=== PATIENT | male | born 1995 | race Caucasian/White ===

== ENCOUNTER 2020-11-24 16:48 | Emergency (ER) | payer OTHER, MEDICAID ==
[~2020-11-24] VITALS: Ht 172.7 cm; Wt 63.5 kg
[2020-11-24] MEDS ORDERED: ACETAMINOPHEN 500 MG TAB PO ONE (18:00)
[2020-11-24] MEDS ORDERED: METHOCARBAMOL 500 MG TAB PO ONE (19:30)
[2020-11-24 19:42] VITALS: BP 127/88
== END 2020-11-24 20:33 | disposition home or self-care (01) ==
LOC: EDBD 16:48 → ER 16:48
DX: S16.1XXA Strain of muscle, fascia and tendon at neck level, initial encounter (principal); S39.012A Strain of muscle, fascia and tendon of lower back, initial encounter; S86.912A Strain of unspecified muscle(s) and tendon(s) at lower leg level, left leg, initial encounter; R07.89 Other chest pain; F17.210 Nicotine dependence, cigarettes, uncomplicated; V43.52XA Car driver injured in collision with other type car in traffic accident, initial encounter; Y93.89 Activity, other specified; Y92.410 Unspecified street and highway as the place of occurrence of the external cause; Y99.8 Other external cause status
CPT/HCPCS: 71045; 72125; 73562